=== PATIENT | male | born 2000 | race Caucasian/White ===

== ENCOUNTER 2023-04-28 16:54 | Emergency (ER) | payer OTHER, SELFPAY ==
[2023-04-28 16:58] VITALS: BP 135/79; PULSE 93; RESP 16; O2SAT 95; BMI 35.1
--- NOTE | 2023-04-28 17:16 | XR_ITS ---
The [address] [address] Patient Name: LIU OLSEN MRN: [id number] date: 2000 Sex: M Assigned Patient Location: ER Current Patient Location: ER Accession/Order Number: [id number] Exam Date: 04/28/2023 18:16 Report Date: 04/28/2023 18:27 At the request of: MORIAH WILLS Procedure: XR pelvis 1-2V EXAM: XR pelvis 1-2V HISTORY: pain COMPARISON: None. TECHNIQUE: One view of the pelvis FINDINGS: No acute fracture or dislocation. The soft tissue is unremarkable. There is mild bilateral hip joint osteoarthritis characterized by mild joint space narrowing, marginal osteophyte and subchondral sclerosis. IMPRESSION: No acute process. Electronically authenticated by: JOHN ALVAREZ Date: 04/28/2023 18:27
--- NOTE | 2023-04-28 17:17 | ED.GENADUL1 ---
HPI - General Adult General Chief complaint: Urogenital-Male Stated complaint: FLANK PAIN Time Seen by Provider: 04/28/23 17:10 Source: patient Source information: patient Mode of arrival: walk-in Limitations: no limitations History of Present Illness HPI narrative: patient presents with discomfort in his upper left hip joint area. It is not in his flank. He has not had kidney stones. He has not seen blood in his urine. He's had previous workup by a chiropractor and back modestoll Dahiana was told that he has a little pelvic tilt. He does not have pain radiating down to his leg. He has no bowel or bladder incontinence. He is not running a fever. He said he was at work and the pain made him nauseated. The pain does not radiate to his groin or scrotal area at all. No personal or family history of kidney stones that he is aware of. He says the pain and discomfort was made worse when he twists and turns. Related Data Allergies Allergy/AdvReac Type Severity Reaction Status Date / Time straterra Allergy Intermediate Uncoded 04/28/23 17:03 [facility] Medical History (Updated 04/28/23 @ 19:01 by Greg Villalta MD) Social History Smoking status: Current every day smoker Exam Constitutional Vital Signs - 24 hr 04/28/23 16:58 Pulse Rate [Monitor] 93 H Respiratory Rate 16 Blood Pressure [Right Arm] 135/79 H Pulse Oximetry 95 Oxygen Delivery Method Room Air Documenting provider has reviewed patient's vital signs: yes Common normals: no apparent distress Other: patient moves about comfortably stands and bends over and touches his toes twist and turn with no obvious discomfort. Respiratory Common normals: normal respiratory effort Extremity Common normals: normal to inspection Other: range of motion of the hip or flexion extension external rotation and internal rotation reproduce very minimal discomfort. There is no inflammation over the hip joint that we can tell clinically. The skin is normal with no evidence of shingles. He has actually no discomfort in the paralumbar area. Course Vital Signs Vital signs: Vital Signs Pulse Rate 93 H 04/28/23 16:58 Respiratory Rate 16 04/28/23 16:58 Blood Pressure 135/79 H 04/28/23 16:58 Pulse Oximetry 95 04/28/23 16:58 Oxygen Delivery Method Room Air 04/28/23 16:58 Pulse Rate 82 04/28/23 19:04 Respiratory Rate 16 04/28/23 19:04 Blood Pressure 125/96 H 04/28/23 19:04 Pulse Oximetry 99 04/28/23 19:04 Oxygen Delivery Method Room Air 04/28/23 19:04 Medical Decision Making MDM Narrative Medical decision making narrative: patient does not seem to present as a acute renal problem. Findings are most consistent with a musculoskeletal problem and x-rays disclosed some arthritic changes in that left hip. Lab Data Labs: Lab Results 04/28/23 04/28/23 Range/Units 17:10 17:56 Urine Color Lt. yellow (YELLOW) Urine Clarity Clear (CLEAR) Urine pH 7.5 (5.0-9.0) Ur Specific [place] 1.020 (1.005-1.025) Urine Protein 100 A (NEG/TRACE) mg/dL Urine Glucose (UA) Negative (NEGATIVE) mg/dL Urine Ketones Negative (NEGATIVE) mg/dL Urine Occult Blood Negative (NEGATIVE) Urine Nitrite Negative (NEGATIVE) Urine Bilirubin Negative (NEGATIVE) Urine Urobilinogen 1.0 (0.2-1.0) EU/dL Ur Leukocyte Esterase Negative (NEGATIVE) Urine RBC None seen (0-2) #/HPF Urine WBC 0-2 A (NONE SEEN) #/HPF Ur Squamous Epith Cells Rare (NONE/RARE) #/LPF Urine Crystals None seen (None Seen) #/HPF Urine Bacteria Trace A (NONE SEEN) #/HPF Urine Casts None seen (NONE SEEN) #/LPF Urine Mucus Small A (NONE SEEN) Urine Sperm Seen Ur Culture Indicated? No Discharge Plan Discharge Chief Complaint: Urogenital-Male Clinical Impression: Degenerative joint disease of left hip Patient Disposition: Home, Self-Care Time of Disposition Decision: 19:00 Condition: Good Mode of Transportation: Private Vehicle Stand Alone Forms: Portal Instructions Referrals: Casey Becerra MD [Primary Care Provider] - 1 week Discharge Date/Time: 04/28/23 19:07
[2023-04-28 17:24] LABS: Bilirubin Urine NEGATIVE (NEGATIVE); Blood Urine NEGATIVE (NEGATIVE); Clarity Urine CLEAR (CLEAR); Color Urine LT. YELLOW (YELLOW); Glucose Urine UA NEGATIVE (NEGATIVE); Ketones Urine NEGATIVE (NEGATIVE); Leukocyte Esterase Urine NEGATIVE (NEGATIVE); Nitrite Urine NEGATIVE (NEGATIVE); Protein Urine 100 mg/dL (NEG/TRACE); pH Urine 7.5 (5.0-9.0)
[2023-04-28 17:56] LABS: Urine Microscopic Indicated YES
[2023-04-28 18:08] LABS: WBC Urine 0-2 #/HPF (NONE SEEN)
[2023-04-28 18:09] LABS: Bacteria Urine TRACE #/HPF (NONE SEEN); Cast Seen? NONE SEEN #/LPF (NONE SEEN); Crystals Seen? None Seen #/HPF (None Seen); Mucus Urine SMALL (NONE SEEN); RBC Urine NONE SEEN #/HPF (0-2); Sperm Urine SEEN; Squamous Epithelial Cell Urine RARE #/LPF (NONE/RARE); Urine Culture Indicated NO
[2023-04-28 19:04] VITALS: BP 125/96; PULSE 82; RESP 16; O2SAT 99
== END 2023-04-28 19:07 | disposition home or self-care (01) ==
PROVIDERS: Emergency Provider Emergency Medicine Emergency Medical Services; PCP Family Medicine
DX: M16.12 Unilateral primary osteoarthritis, left hip (principal); F17.210 Nicotine dependence, cigarettes, uncomplicated
CPT/HCPCS: 72170; 81003; 81015; 99284

== ENCOUNTER 2025-07-01 08:04 | Emergency (ER) | payer OTHER, SELFPAY ==
[2025-07-01 08:13] VITALS: BP 129/93; PULSE 85; TEMP 36.8; O2SAT 94; BMI 35.9
--- NOTE | 2025-07-01 08:23 | XR_ITS ---
The [place] [id number] Patient Name: LIU OLSEN MRN: [id number] date: 2000 Sex: M Assigned Patient Location: ER Current Patient Location: ER Accession/Order Number: [id number] Exam Date: 07/01/2025 09:06 Report Date: 07/01/2025 09:09 At the request of: MILLICENT MCCANN MD Procedure: XR lumbar spine 2-3V XR lumbar spine 2-3V 07/01/2025 8:49 AM SIGNS AND SYMPTOMS: Chronic low back pain PROTOCOLS: Frontal and lateral radiographs of the lumbar spine COMPARISON: None FINDINGS: The alignment, development and bony structures are normal. There is no fracture or destructive lesion. There is mild disc height loss at L5-S1. The sacrum and sacroiliac joints are normal. XR/XR lumbar spine 2-3V IMPRESSION: There is mild disc height loss at L5-S1. No fracture or subluxation. Impression dictated by: Dev Ward M.D. 07/01/2025 9:09 AM Dictation Location: [place] [address] Electronically authenticated by: [id number] Y Date: 07/01/2025 09:09
--- NOTE | 2025-07-01 08:23 | XR_ITS ---
[address] [address] Patient Name: LIU OLSEN MRN: [id number] date: 2000 Sex: M Assigned Patient Location: ER Current Patient Location: ER Accession/Order Number: [id number] Exam Date: 07/01/2025 09:09 Report Date: 07/01/2025 09:11 At the request of: MILLICENT MCCANN MD Procedure: XR sacrum coccyx min 2V XR sacrum coccyx min 2V 07/01/2025 8:49 AM SIGNS AND SYMPTOMS: Chronic low back pain PROTOCOL: Frontal and lateral radiographs of the sacrum and coccyx COMPARISON: 04/28/2023 FINDINGS: There is mild disc height loss at L5-S1. The sacroiliac joints are preserved. There is no fracture or dislocation. XR/XR sacrum coccyx min 2V IMPRESSION: No acute bony injury. The sacroiliac joints are preserved. Mild disc height loss is noted at L5-S1. Impression dictated by: Dev Ward M.D. 07/01/2025 9:11 AM Dictation Location: [place] [address] Electronically authenticated by: [id number] Y Date: 07/01/2025 09:11
[2025-07-01] MEDS: KETOROLAC TROMETHAMINE 60 MG/2 ML VIAL IM (08:27)
--- NOTE | 2025-07-01 09:45 | ED_ITS ---
HPI HPI - Back Pain/Injury General Chief Complaint: Back Pain/Injury Stated Complaint: BACK PAIN Time Seen by Provider: 07/01/25 08:18 Source: patient Mode of arrival: ambulance Limitations: no limitations History of Present Illness HPI Narrative: Patient is coming to the ER with a lower back pain mostly at his tailbone he mentioned that he fell over a stack of tires yesterday, mentioned that when this happened he did not have any lower extremity pain and he does not have the pain going down his leg he already had a history of chronic back pain The pain is limited to his lower back in addition there is no numbness tingling or any weakness and the patient have no incontinence The patient also mentioned that he has been trying Tylenol ibuprofen at home with no effect Related Data Previous Rx's ?Medication ?Instructions ?Recorded diclofenac sodium 75 mg 75 mg PO BID PRN pain #20 ta bs 07/01/25 tablet,delayed release orphenadrine citrate 100 mg 100 mg PO DAILY PRN muscle spasm 07/01/25 tablet,extended release #10 tabs Allergies Allergy/AdvReac Type Severity Reaction Status Date / Time straterra Allergy Intermediate hyper Uncoded 07/01/25 08:19 Opioid HPI Opioid Management Most Recent Opioid Data: Last Pain Scale 3 Today, 09:49 Last MAR Pain Assessment Today, 08:27 Review of Systems ROS Status of ROS 10 or more systems reviewed and unremark able except as noted in history and below [facility] Medical History (Updated 07/01/25 @ 09:48 by Antonieta Glover MD) Ureterolithiasis ?N20.1 - Calculus of ureter (ICD-10) Arachnoid cyst ?G93.0 - Cerebral cysts (ICD-10) Pain in abdominal muscle of left flank ?M79.18 - Myalgia, other site (ICD-10) Pain in abdominal muscle of left flank ?M79.18 - Myalgia, other site (ICD-10) Social History (Updated 07/01/25 @ 08:23 by Rand Medina RN) Smoking status: Current every day smoker Do you use any of these nicotine containing products: vaping products Non-prescribed substance use: cannabis (any form) Little interest or pleasure in doing things: not at all Feeling down, depressed, or hopeless: not at all Exam Narrative Exam Narrative: Nurses notes and vital signs reviewed and patient is not hypoxic. General: Well-appearing and in no apparent distress. Skin: Warm, dry, no pallor noted. No rash. Head: Normocephalic, atraumatic. Neck: Supple, non-tender. Back examination: The patient have intervertebral line tenderness of the lower lumbar level in addition to the sacral level No obvious ecchymosis or any wounds and there is also paraspinal muscle tenderness Constitutional Vital Signs, click to edit/add: Last Vital Signs Temp 98.3 F 07/01/25 08:13 Pulse 81 07/01/25 09:49 Resp 16 07/01/25 09:49 BP 140/73 07/01/25 09:49 Pulse Ox 97 07/01/25 09:49 O2 Del Method Room Air 07/01/25 09:49 Course Vital Signs Vital signs: Vital Signs Temperature 98.3 F 07/01/25 08:13 Pulse Rate 85 07/01/25 08:13 Respiratory Rate 16 07/01/25 08:13 Blood Pressure 129/93 H 07/01/25 08:13 Pulse Oximetry 94 L 07/01/25 08:13 Oxygen Delivery Method Room Air 07/01/25 08:13 Temperature 98.3 F 07/01/25 08:13 Pulse Rate 81 07/01/25 09:49 Respiratory Rate 16 07/01/25 09:49 Blood Pressure 140/73 07/01/25 09:49 Pulse Oximetry 97 07/01/25 09:49 Oxygen Delivery Method Room Air 07/01/25 09:49 MDM - Back Pain/Injury MDM Narrative Medical decision making narrative: The patient x-ray of the lumbar spine as well as x-ray of the sacrum did not show any acute pathology although he does have some shortening of the L5-S1 level Right now the patient was treated in the ER with Toradol discharged home with Voltaren and Norflex with instruction not to carry anything more than 10 pounds and to rest for the next 2 days The patient was educated about alarming symptoms that would bring him back to the ER The patient is to follow up with primary care physician in next 2-3 days or to return to the emergency department should any of the signs or symptoms worsen or new symptoms develop. The patient agrees with the following Diagnosis and Treatment plan and the patient will be discharged home. Discharge Plan Discharge Chief Complaint: Back Pain/Injury Clinical Impression: Back pain, Fall Patient Disposition: Home, Self-Care Time of Disposition Decision: 09:48 Condition: Good Prescriptions / Home Meds: New diclofenac sodium 75 mg tablet,delayed release (DR/EC) 75 mg PO BID PRN (Reason: pain) Qty: 20 0RF orphenadrine citrate 100 mg tablet extended release 100 mg PO DAILY PRN (Reason: muscle spasm) Qty: 10 0RF Print Language: Wolof Instructions: Back Pain (ED), Fall Prevention (ED) Referrals: Casey Becerra MD [Primary Care Provider, Family Practice] - 1 week Discharge Date/Time: 07/01/25 10:02
[2025-07-01 09:49] VITALS: BP 140/73; PULSE 81; O2SAT 97
== END 2025-07-01 10:02 | disposition home or self-care (01) ==
PROVIDERS: Emergency Provider Emergency Medicine; PCP Family Medicine
DX: M54.50 Low back pain, unspecified (principal); F17.290 Nicotine dependence, other tobacco product, uncomplicated; Z91.81 History of falling
CPT/HCPCS: 72100; 72220; 80053; 83605; 85652; 86140; 96372; 99284; J1885